=== PATIENT | female | born 1980 | race Caucasian/White ===

== ENCOUNTER 2023-08-03 13:55 | Emergency (ER) | payer SELFPAY ==
[~2023-08-03] VITALS: Ht 165.1 cm; Wt 99.8 kg
[2023-08-03 14:07] VITALS: BP 125/91; PULSE 73; RESP 16; TEMP 98; O2SAT 96
[2023-08-03] MEDS ORDERED: SULF-58 PO (14:20)
== END 2023-08-03 14:24 | disposition home or self-care (01) ==
LOC: MED 13:55
DX: H01.9 Unspecified inflammation of eyelid (principal); Z79.899 Other long term (current) drug therapy
CPT/HCPCS: 99281